=== PATIENT | female | born 1965 | race Caucasian/White ===

== ENCOUNTER → 2019-07-22 | Outpatient (CLI) | payer MEDICAID ==
[~2019-07-22] MED LIST: DOXY100C2 PO; EFFEXOR; LISINOPRIL; METH4TAB PO; OXYCODONE; PRILOSEC; VENTOLIN; VICTOZA
--- NOTE | 2019-07-22 15:36 | Diagnostic Imaging Report ---
INDICATION: Lower back pain. COMPARISON: None. FINDINGS: Frontal and lateral views of the lumbar spine were obtained. Alignment and vertebral heights are maintained. There is no fracture or destructive process. 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 This consists of intervertebral disc height loss with prominent anterior and posterior disc osteophyte complex formation, as well as multilevel facet arthropathy. Limited views of the abdomen demonstrate nonobstructive bowel gas pattern. IMPRESSION: 1. No acute fracture or dislocation of the lumbar spine. 2. Moderate multilevel degenerative changes. Dictated by: Dictated on workstation # [id number]
== END ==
LOC: RAD 15:08
PROVIDERS: ATTEND Nurse Practitioner Community Health
DX: M47.816 Spondylosis without myelopathy or radiculopathy, lumbar region (principal)
CPT/HCPCS: 72100

== ENCOUNTER → 2019-08-11 | Outpatient (CLI) | payer MEDICAID ==
[~2019-08-11] VITALS: Ht 172 cm; Wt 146.0 kg
[~2019-08-11] MED LIST changes: +CATHETER FLUSH 10 ML SYR IV PRN; +REGADENOSON 0.4 MG/5 ML SYR (LEXISCAN) IV ONE
[2019-08-11 09:42] VITALS: BP 110/77
--- NOTE | 2019-08-11 21:31 | STRESS TEST ---
DATE OF SERVICE: 08/11/2019 LEXISCAN MYOVIEW STRESS TEST REFERRING PHYSICIAN: [facility]. Baseline heart rate is 69, baseline blood pressure 135/89. Baseline EKG is sinus rhythm with no ischemic changes. In summary, the patient was injected with 10.66 mCi of technetium-99 Myoview and the resting images were obtained. Then, the patient received 0.4 mg of Lexiscan followed by 32.9 mCi of technetium-99 Myoview. Throughout the test, there were no EKG changes. The resting and stress images were reviewed and compared in the short axis, horizontal long axis, and vertical long axis views. Review of the images showed breast attenuation with typical female pattern with no significant ischemia or infarction. SSS is 0. TID value is 1.14. On the gated images, the left ventricle appeared to be normal size with normal contractility. Calculated ejection fraction is 59%. CONCLUSION: 1. The patient tolerated Lexiscan well. 2. Breast attenuation with typical female pattern with no significant ischemia or infarction on SPECT images. 3. Normal left ventricular size with normal contractility. Calculated ejection fraction is 59%. Job ID: [id number] DocumentID: [id number] Dictated Date: 08/11/2019 16:14:03 [employer] Operator Date: 08/11/2019 21:31:31 Dictated By: CHAVA SPENCER MD
== END ==
LOC: CARD 08:05
PROVIDERS: ATTEND Internal Medicine Cardiovascular Disease
DX: I07.1 Rheumatic tricuspid insufficiency (principal); I49.3 Ventricular premature depolarization; I10 Essential (primary) hypertension
CPT/HCPCS: 78452; 93017; 93306

== ENCOUNTER → 2019-08-26 | Outpatient (CLI) | payer MEDICAID ==
[~2019-08-26] MED LIST changes: -CATHETER FLUSH 10 ML SYR IV PRN; -REGADENOSON 0.4 MG/5 ML SYR (LEXISCAN) IV ONE
--- NOTE | 2019-08-26 12:57 | Diagnostic Imaging Report ---
EXAMINATION: Noninvasive extremity bilateral. INDICATION: Leg numbness. COMPARISON: There are no prior studies available for comparison. FINDINGS: The ankle brachial indices were obtained in the usual fashion. The ankle-brachial index on the right is 1.18 and on the left 1.16 (normal 1.00 or greater). IMPRESSION: The ankle brachial indices are within normal limits. Dictated by: Dictated on workstation # [id number]
== END ==
LOC: RAD 11:39
PROVIDERS: ATTEND Internal Medicine Cardiovascular Disease
DX: I73.9 Peripheral vascular disease, unspecified (principal); I10 Essential (primary) hypertension; R07.89 Other chest pain; R06.09 Other forms of dyspnea
CPT/HCPCS: 93922

== ENCOUNTER → 2019-12-30 | Outpatient (CLI) | payer MEDICARE, OTHER, MEDICAID ==
[~2019-12-30] MED LIST changes: +GADOBUTROL 10 MMOL/10 ML (GADAVIST) VIAL IV ONE
[2019-12-30 08:53] LABS: CREATININE SERUM 1.62 MG/DL (0.60-1.30)
== END ==
LOC: RAD 08:12
PROVIDERS: ATTEND Nurse Practitioner Community Health
DX: E11.9 Type 2 diabetes mellitus without complications (principal); R53.1 Weakness; R53.82 Chronic fatigue, unspecified
CPT/HCPCS: 36415; 82565; 84520